=== PATIENT | female | born 1970 | race Caucasian/White ===

== ENCOUNTER → 2024-03-23 11:54 | Outpatient (REF) | payer BC, SELFPAY ==
[2024-03-23 14:30] LABS: Free T4 1.75 ng/dl (0.78-2.19)
[2024-03-23 14:44] LABS: TSH < 0.02 uIU/ml (0.47-4.68)
[2024-03-25 17:55] LABS: Thyroid Peroxidase Ab (TPO) 4.9 IU/mL (0.0-9.0)
[2024-03-25 18:08] LABS: Thyroglobulin 0.5 ng/mL (1.3-31.8); Thyroglobulin Antibodies 1.1 IU/mL (0.0-4.0)
== END ==
LOC: REG 11:54
PROVIDERS: ATTENDING PHYSICIAN Internal Medicine Endocrinology, Diabetes & Metabolism; FAMILY PHYSICIAN Nurse Practitioner
DX: E06.3 Autoimmune thyroiditis (principal)
CPT/HCPCS: 36415; 84432; 84439; 84443; 86376; 86800

== ENCOUNTER → 2024-07-07 08:48 | Outpatient (REF) | payer BC, SELFPAY ==
[2024-07-07 10:22] LABS: % Basophils 0.6 % (0-2); % Eosinophils 5.2 % (0-6); % Immature Granulocytes 0.3 % (0-0.5); % Lymphocytes 42.1 % (20.5-51.1); % Neutrophils 46.8 % (42.2-75.2); Absolute Eosinophils 0.3 10^3/uL (0-0.7); Absolute Lymphocytes 2.6 10^3/uL (1.2-3.4); Absolute Monocytes 0.3 10^3/uL (0.1-0.6); Absolute Neutrophils 2.9 10^3/uL (1.4-6.5); Hematocrit 39.9 % (37.0-47.0); Hemoglobin 13.7 g/dL (12.0-16.0); Mean Corp Hgb Conc. 34.3 g/dL (33.0-37.0); Mean Corpuscular Volume 87.5 fL (81.0-99.0); Mean Platelet Volume 10.4 fL (7.4-10.4); Nucleated Red Blood Cells % 0 %; Platelet Count 195 10^3/uL (130-400); Red Blood Cell Count 4.56 10^6/uL (4.20-5.40); Red Cell Dist. Width 12.5 % (11.5-14.5); White Blood Cell Count 6.2 10^3/uL (4.8-10.8)
[2024-07-07 10:28] LABS: Glycohemoglobin (HgbA1c) 5.1 % (4.0-5.6)
[2024-07-07 14:40] LABS: TSH Reflex To Free T4 0.09 uIU/ml (0.47-4.68)
[2024-07-07 15:07] LABS: ALT (SGPT) 21 U/L (0-35); AST (SGOT) 23 U/L (14-36); Alkaline Phosphatase 80 U/L (38-126); Blood Urea Nitrogen 18 mg/dl (7-17); Calcium 9.6 mg/dl (8.4-10.2); Carbon Dioxide 26 mmol/L (22-30); Chloride 108 mmol/L (98-107); Glucose 82 mg/dl (70-99); HDL Cholesterol 63 mg/dl; LDL Cholesterol, Calculated 100 mg/dl; Potassium 3.9 mmol/L (3.5-5.1); Sodium 140 mmol/L (135-145); Total Bilirubin 0.6 mg/dl (0.2-1.3); Total Cholesterol 179 mg/dl (50-199); Total Protein 6.3 g/dl (6.3-8.2); Triglyceride 80 mg/dl (10-149); Very Low Density Lipoprotein 16 mg/dl (0-30); eGFR > 60.00
[2024-07-07 15:09] LABS: Free T4 1.44 ng/dl (0.78-2.19)
== END ==
LOC: REG 08:48
PROVIDERS: ATTENDING PHYSICIAN Internal Medicine Endocrinology, Diabetes & Metabolism; FAMILY PHYSICIAN Nurse Practitioner Family
DX: E06.3 Autoimmune thyroiditis (principal); Z00.00 Encounter for general adult medical examination without abnormal findings
CPT/HCPCS: 36415; 80053; 80061; 83036; 84439; 84443; 85025

== ENCOUNTER → 2024-09-16 13:42 | Outpatient (REF) | payer BC, SELFPAY | LOC: WDC 13:42 | PROVIDERS: ATTENDING PHYSICIAN Nurse Practitioner Family; FAMILY PHYSICIAN Nurse Practitioner Family | DX: Z12.31 Encounter for screening mammogram for malignant neoplasm of breast (principal) | CPT/HCPCS: 77063; 77067 ==

== ENCOUNTER → 2024-09-18 09:51 | Outpatient (REF) | payer BC, SELFPAY | LOC: CPAP 09:51 | PROVIDERS: ATTENDING PHYSICIAN Obstetrics & Gynecology | DX: Z01.419 Encounter for gynecological examination (general) (routine) without abnormal findings (principal); R87.615 Unsatisfactory cytologic smear of cervix | CPT/HCPCS: G0123 ==

== ENCOUNTER → 2025-05-06 08:35 | Outpatient (REF) | payer BC, SELFPAY ==
[2025-05-06 10:18] LABS: Blood Urea Nitrogen 14 mg/dl (7-17); Calcium 9.3 mg/dl (8.4-10.2); Carbon Dioxide 27 mmol/L (22-30); Chloride 109 mmol/L (98-107); Glucose 82 mg/dl (70-99); Potassium 4.5 mmol/L (3.5-5.1); Sodium 140 mmol/L (135-145); eGFR > 60.00
== END ==
LOC: REG 08:35
PROVIDERS: ATTENDING PHYSICIAN Nurse Practitioner Family
DX: R79.89 Other specified abnormal findings of blood chemistry (principal)
CPT/HCPCS: 36415; 80048

== ENCOUNTER → 2025-08-04 14:02 | Outpatient (REF) | payer BC, SELFPAY ==
[2025-08-04 15:54] LABS: TSH 3.45 uIU/ml (0.47-4.68)
[2025-08-05 18:49] LABS: Hepatitis C Antibody Negative (Negative)
== END ==
LOC: REG 14:02
PROVIDERS: ATTENDING PHYSICIAN Internal Medicine Endocrinology, Diabetes & Metabolism; FAMILY PHYSICIAN Family Medicine
DX: Z11.59 Encounter for screening for other viral diseases (principal); E06.3 Autoimmune thyroiditis
CPT/HCPCS: 36415; 84439; 84443; 86803